=== PATIENT | female | born 1990 | race Caucasian/White ===

== ENCOUNTER 2020-03-27 14:37 | Emergency (ER) | payer MEDICAID, SELFPAY ==
[2020-03-27 14:42] VITALS: BP 110/66; PULSE 89; RESP 17; TEMP 36.7; O2SAT 97; BMI 29.7
--- NOTE | 2020-03-27 15:02 | ED.VIS.GEN ---
History of Present Illness Narrative: 29-year-old female presents with 1 week of COVID-19 type symptoms. 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 She initially lost her sense of smell and taste. She then developed gradual shortness of breath over the past 3 days. No cough. She states that her doctor told her she has asthma but she has not been formally tested. She has been using an inhaler with only minimal improvement. No recent travel. No obvious known exposures. No fever at home. <Prince Godinez - Last Filed: 03/27/20 15:43> <Quintin Roberts - Last Filed: 03/27/20 19:07> Chief Complaint: Shortness of Breath Past Medical History Prior records reviewed: Yes Surgical History: no surgical history Smoking Status: Former smoker <Prince Godinez - Last Filed: 03/27/20 15:43> <Quintin Roberts - Last Filed: 03/27/20 19:07> - Allergies and Home Meds Allergies/Adverse Reactions: Allergies aspirin Allergy (Verified 03/27/20 14:41) Unknown diphenhydramine HCl [From Benadryl] Allergy (Verified 03/27/20 14:41) Unknown Sulfa (Sulfonamide Antibiotics) Allergy (Verified 03/27/20 14:41) Unknown Primary Care Physician: Federica Hood MD [STAFF PHYSICIAN] - Review of Systems General: Denies: Chills, Fever, Sweats Eyes: Denies: Visual changes - bilaterally, Diplopia ENT: Denies: Rhinorrhea, Sore throat Cardiovascular: Denies: Chest pain, Palpitations Respiratory: Reports: Dyspnea. Denies: Cough, Dyspnea on exertion Gastrointestinal: Denies: Abdominal pain, Nausea, Vomiting, Diarrhea, Melena, Hematochezia Genitourinary: Denies: Dysuria, Hematuria, Frequency Musculoskeletal: Denies: Back pain, Extremity Pain Skin: Denies: Rash, Wounds Neurological: Denies: Headache, Weakness, Numbness Hematologic: Denies: Easy bleeding <Prince Godinez - Last Filed: 03/27/20 15:43> Physical Exam Vital Signs/Narrative: Vital Signs Temp Pulse Resp BP Pulse Ox 03/27/20 14:42 98.0 F 89 17 110/66 97 General: Well nourished, Well developed, No Acute Distress Head: Normocephalic, Atraumatic Eyes: Perrl, EOMI ENT: Moist mucous membranes, No rhinorrhea Neck: Supple, Nontender Cardiovascular: Regular rate, Regular rhythm, No murmurs Respiratory: No distress, CTA bilaterally, Chest nontender Abdomen: Soft, Nontender, Nondistended, Normal bowel sounds Back: Nontender, Normal Inspection Extremities: Nontender, No edema Skin: Normal color, No rash Neurological: Alert, Oriented x3, Cranial nerves II-XII grossly intact, Normal Strength, Normal Sensation Psychological: Normal affect, Normal Mood <Prince Godinez - Last Filed: 03/27/20 15:43> Vital Signs/Narrative: Vital Signs Temp Pulse Resp BP Pulse Ox 03/27/20 17:31 98.4 F 67 16 98/61 99 03/27/20 15:19 98.0 F 89 17 110/66 97 <Quintin Roberts - Last Filed: 03/27/20 19:07> Diagnostic/Tx/Re-eval - Medical Decision Making Ordered labs including a COVID swab and a chest x-ray. Care will be turned over to the oncoming physician. She looks well. Pulse oximetry 98%. Not tachycardic. No fever here. <Prince Godinez - Last Filed: 03/27/20 15:43> - Medical Decision Making Care of the patient was turned over to me. Chest x-ray was obtained. There is no acute cardiopulmonary process. Basic labs were obtained and were all within normal limits. COVID swab was obtained and was negative. Patient was given COVID precautions. Patient was instructed to follow-up with her primary care physician in 5 to 7 days. Patient understood and was agreeable with the plan. All questions were answered. <Quintin Roberts - Last Filed: 03/27/20 19:07> ED Disposition <Prince Godinez - Last Filed: 03/27/20 15:43> <Quintin Roberts - Last Filed: 03/27/20 19:07> - Plan for ED Patient: Disposition: Home or Assisted Living Diagnosis: Suspected COVID-19 virus infection Instructions: ED Upper Resp Infec No Abx Tx Referrals: Federica Hood MD [STAFF PHYSICIAN] - 5-7 Days
[2020-03-27 15:19] VITALS: BP 110/66; PULSE 89; RESP 17; TEMP 36.7; O2SAT 97
--- NOTE | 2020-03-27 15:25 | RAD_ITS ---
STUDY: X-RAY CHEST REASON FOR EXAM: Female, 29 years old. Shortness of breath x 3-4 days, loss of taste and smell x 1 week, chills, sore throat TECHNIQUE: Single AP portable view of the chest. COMPARISON: 08/22/2013. FINDINGS: The lungs are clear and expanded. There is no demonstrated pleural abnormality. Normal size heart. Normal mediastinum and malik. Normal visualized pulmonary arteries. Normal visualized aortic arch and descending thoracic aorta. Normal visualized thoracic spine. Normal visualized ribs, clavicles, and shoulders. There is no demonstrated abnormality of the visualized soft tissue structures of the upper abdomen. RAD/Chest 1 View (Portable) IMPRESSION: Normal x-ray examination of the chest. Electronically Signed: Kedar Tucker MD at 16:26 EDT , Service support ,
[2020-03-27 15:47] LABS: Absolute Lymphocyte Count 2.58 X10^3/uL (0.83-4.51); Absolute Neutrophil Count 3.8 X10^3/uL (2.0-7.7); Basophil# 0.01 X10^3/uL; Basophil% 0.1 % (0-1); Eosinophil# 0.09 X10^3/uL; Eosinophils% 1.3 % (0-5); Hematocrit 34.7 % (37-47); Hemoglobin 10.6 g/dL (12.0-15.0); Lymphocyte # 2.58 X10^3/ul (4.0); Lymphocyte % 36.5 % (19-41); Mean Corp Hgb Conc 30.5 g/dL (32-36); Mean Corpuscular Hgb 20.8 pg (27.0-32.0); Mean Corpuscular Volume 68.2 fL (81-99); Monocyte# 0.61 X10^3/uL; Monocyte% 8.6 % (0-10); NRBC Flagged by Analyzer 0 % (0-5); Neutrophil # 3.76 X10^3/uL (2.7-7.7); Neutrophil % 53.2 % (47-70); Platelet Count 150 K/mm3 (150-450); RBC Distribution Width CV 14.9 % (11.6-14.6); RBC Distribution Width SD 35.8 fl (35.1-43.9); Red Blood Count 5.09 M/mm3 (4.2-5.4); White Blood Count 7.1 K/mm3 (4.4-11.0)
[2020-03-27 16:57] LABS: ALB/GLOB Ratio 1.2 RATIO (0.9-2.4); AST(SGOT) 37 U/L (15-37); Alanine Aminotransfer ALT/SGPT 51 U/L (13-56); Albumin, Serum 4.2 g/dL (3.2-5.0); Alkaline Phosphatase 77 U/L (45-117); Anion Gap 5 (5-15); BUN 9 mg/dL (7-18); BUN/Creat Ratio 12.4 RATIO (10-20); Chloride 107 mmol/L (98-107); Creatinine, Serum 0.73 mg/dL (0.55-1.02); EST Glomerular Filtration Rate 100 mL/min (>60); Est Glom Filt Rate - Afr Amer 121 mL/min (>60); Estimated Creatinine Clearance 85.81 ml/min; Globulin 3.6 g/dL (2.2-4.2); Glucose 92 mg/dL (74-106); Potassium 3.9 mmol/L (3.5-5.1); Protein, Total 7.8 g/dL (6.4-8.2); Sodium Level 139 mmol/L (136-145)
[2020-03-27 17:31] VITALS: BP 98/61; PULSE 67; RESP 16; TEMP 36.9; O2SAT 99
[2020-03-27 19:32] VITALS: BP 95/52; PULSE 75; RESP 16; TEMP 36.8; O2SAT 100
== END 2020-03-27 19:33 | disposition home or self-care (01) ==
PROVIDERS: Emergency Provider Emergency Medicine
DX: Z03.818 Encounter for observation for suspected exposure to other biological agents ruled out (principal); Z87.891 Personal history of nicotine dependence
CPT/HCPCS: 71045; 80053; 85025; 87635; 99282; G2023; U0003